=== PATIENT | male | born 1985 | race Caucasian/White ===

== ENCOUNTER 2018-02-20 20:30 | Emergency (ER) | payer OTHER ==
[~2018-02-20] VITALS: Ht 175.3 cm; Wt 77.1 kg
[2018-02-20 21:12] LABS: ABSOLUTE BASOPHILS 0.1 thou/uL (0.0-0.2); ABSOLUTE EOSINOPHILS 0.2 thou/uL (0.0-0.7); ABSOLUTE LYMPHOCYTES 2.3 thou/uL (0.8-5.3); ABSOLUTE MONOCYTES 0.9 thou/uL (0.0-1.2); ABSOLUTE NEUTROPHILS 7.6 thou/uL (1.6-8.1); BASOPHILS 0.6 %; EOSINOPHILS 1.7 %; HEMATOCRIT 45.8 % (42.0-52.0); HEMOGLOBIN 15.4 gm/dL (14.0-18.0); LYMPHOCYTES 20.6 %; MCHC 33.6 g/dL (28.0-37.0); MCV 92.1 fL (80.0-100.0); MONOCYTES 8.5 %; MPV 8.6 fl. (7.2-11.1); NUCLEATED RBCS 0 /100WBC; PLATELET COUNT* 253 thou/uL (150-400); POLYS 68.6 %; RBC 4.97 mil/uL (4.50-6.00); RDW-CV 13.8 % (10.5-14.5); WBC 11.1 thou/uL (4.0-11.0)
[2018-02-20 21:17] LABS: CALCIUM 9.3 mg/dL (8.5-10.1); CREATININE 0.9 mg/dL (0.6-1.3); POTASSIUM 4.1 mmol/L (3.5-5.1)
[2018-02-20 21:22] LABS: ALBUMIN 3.8 g/dL (3.4-5.0); TOTAL BILIRUBIN 0.4 mg/dL (<0.1-1.0); TOTAL PROTEIN 7.6 g/dL (6.4-8.2)
[2018-02-20 23:04] LABS: URINE BILIRUBIN NEGATIVE (Negative); URINE BLOOD NEGATIVE (Negative); URINE CLARITY CLEAR; URINE COLOR YELLOW; URINE GLUCOSE-RANDOM NEGATIVE (Negative); URINE KETONES NEGATIVE (Negative); URINE LEUKOCYTES NEGATIVE (Negative); URINE NITRITE NEGATIVE (Negative); URINE PROTEIN NEGATIVE (Negative); URINE SPECIFIC GRAVITY 1.025 (1.005-1.030); URINE UROBILINOGEN 0.2 E.U./dl (0.2-1.0)
[2018-02-20] MEDS ORDERED: BENTYL 10 MG CA10 M1 PO (23:21)
[2018-02-20] MEDS ORDERED: PHENERGAN 25 MG25 M1 PO (23:21)
[2018-02-20 23:41] VITALS: BP 139/93
== END 2018-02-20 23:41 | disposition home or self-care (01) ==
LOC: M.ERS 20:30
PROVIDERS: Physician Assistant
DX: K80.50 Calculus of bile duct without cholangitis or cholecystitis without obstruction (principal)